=== PATIENT | male | born 2000 | race Caucasian/White ===

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

== ENCOUNTER 2018-11-28 07:49 | Emergency (ER) | payer SELFPAY ==
[2018-11-28 08:01] VITALS: BP 141/89
--- NOTE | 2018-11-28 09:31 | UC ---
Eye Complaint HPI - HPI Summary HPI Summary: PATIENT HERE WITH SEVERAL DAYS OF BILATERAL EYE IRRITATION AND REDNESS. THIS MORNING EYES WERE CRUSTED SHUT WITH SOME GREEN DRAINAGE. DENIES ANY RECENT ILLNESS. NO FEVER. NO VISUAL DISTURBANCES. NO HEADACHE OR NAUSEA. NO PHOTOPHOBIA. NO FOREIGN BODY SENSATION. DOES NOT WEAR CONTACT LENSES. - History of Current Complaint Chief Complaint: UCEye Stated Complaint: EYE REDNESS Time Seen by Provider: 11/28/18 09:12 Hx Obtained From: Patient Onset/Duration: Gradual Onset, Lasting Days, Still Present Timing: Constant Severity Initially: Moderate Severity Currently: Moderate Pain Intensity: 7 Pain Scale Used: 0-10 Numeric Location of Injury: Conjunctiva Aggravating Factor(s): Nothing Alleviating Factor(s): Nothing Associated Signs And Symptoms: Positive: Drainage (Purulent). Negative: Photophobia, Vision Impairment Bilateral - Allergies/Home Medications Allergies/Adverse Reactions: Allergies Allergy/AdvReac Type Severity Reaction Status Date / Time amoxicillin Allergy Rash Verified 11/28/18 07:59 PMH/Surg Hx/FS Hx/Imm Hx Previously Healthy: Yes - Surgical History Surgical History: None Surgery Procedure, Year, and Place: none - Family History Known Family History: Positive: Cardiac Disease, Other - Cancer - Social History Alcohol Use: None Substance Use Type: None Smoking Status (MU): Never Smoked Tobacco - Immunization History Most Recent Influenza Vaccination: 2014 Review of Systems All Other Systems Reviewed And Are Negative: Yes Constitutional: Positive: Negative Skin: Positive: Negative Eyes: Positive: Drainage, Eye Redness Respiratory: Positive: Negative Cardiovascular: Positive: Negative Gastrointestinal: Positive: Negative Physical Exam Triage Information Reviewed: Yes Appearance: Well-Appearing, No Pain Distress, Well-Nourished Vital Signs: Initial Vital Signs Temp 96.6 F 11/28/18 07:55 Pulse 83 11/28/18 07:55 Resp 16 11/28/18 07:55 BP 141/89 11/28/18 07:55 Pulse Ox 100 11/28/18 07:55 Vital Signs Reviewed: Yes Eyes: Positive: Conjunctiva Inflamed, Discharge, Other: - PERRL, EOMI ENT: Positive: Hearing grossly normal Neck: Positive: Supple Respiratory: Positive: No respiratory distress, No accessory muscle use Cardiovascular: Positive: Pulses Normal Abdomen Description: Positive: Soft Musculoskeletal: Positive: No Edema Neurological: Positive: Alert Psychological: Positive: Age Appropriate Behavior Skin: Negative: Rashes Eye Complaint Course/Dx - Course Course Of Treatment: WILL COVER FOR INFECTIOUS CONJUNCTIVITIS WITH ANTIBIOTIC EYEDROPS. ADVISED TO FOLLOW-UP WITH AN EYE DOCTOR IF HIS SYMPTOMS ARE NOT IMPROVING OVER THE NEXT SEVERAL DAYS. - Differential Dx/Diagnosis Provider Diagnosis: Conjunctivitis, acute, bilateral Discharge - Sign-Out/Discharge Documenting (check all that apply): Patient Departure All imaging exams completed and their final reports reviewed: No Studies - Discharge Plan Condition: Stable Disposition: HOME Prescriptions: Ciprofloxacin 0.3% OPTH.SYLVIE* [Cipro 0.3% Opth*] 1 drop BOTH EYES Q4H #1 btl Patient Education Materials: Conjunctivitis (ED) Referrals: mC Jeffries MD [Primary Care Provider] - If Needed Nasir Calhoun MD [Medical Doctor] - If Needed - Billing Disposition and Condition Condition: STABLE Disposition: Home
== END 2018-11-28 09:30 | disposition home or self-care (01) ==
LOC: UCEAST 07:49
DX: H10.33 Unspecified acute conjunctivitis, bilateral (principal)
CPT/HCPCS: 99212; G0463

== ENCOUNTER 2019-04-20 07:43 | Emergency (ER) | payer BC ==
[2019-04-20 08:01] VITALS: BP 142/86
--- NOTE | 2019-04-20 10:47 | UC ---
Throat Pain/Nasal Andrew HPI - HPI Summary HPI Summary: 4 DAYS OF SORE THROAT AND PAIN WITH SWALLOWING. NO FEVER, NAUSEA/VOMITING. NO COUGH OR CONGESTION. - History of Current Complaint Chief Complaint: UCRespiratory Stated Complaint: SORE THROAT Time Seen by Provider: 04/20/19 07:52 Hx Obtained From: Patient Onset/Duration: Gradual Onset, Lasting Days, Still Present Severity: Moderate Pain Intensity: 7 Pain Scale Used: 0-10 Numeric Cough: None Associated Signs & Symptoms: Positive: Negative - Allergies/Home Medications Allergies/Adverse Reactions: Allergies Allergy/AdvReac Type Severity Reaction Status Date / Time amoxicillin Allergy Rash Verified 04/20/19 07:58 Home Medications: Home Medications NK [No Home Medications Reported] 04/20/19 [History Confirmed 04/20/19] PMH/Surg Hx/FS Hx/Imm Hx - Additional Past Medical History Additional PMH: ADD - Surgical History Surgical History: None Surgery Procedure, Year, and Place: none - Family History Known Family History: Positive: Cardiac Disease, Other - Cancer - Social History Alcohol Use: None Substance Use Type: None Smoking Status (MU): Never Smoked Tobacco - Immunization History Most Recent Influenza Vaccination: 2014 Review of Systems All Other Systems Reviewed And Are Negative: Yes Constitutional: Positive: Negative ENT: Positive: Sore Throat Respiratory: Positive: Negative Cardiovascular: Positive: Negative Gastrointestinal: Positive: Negative Physical Exam Triage Information Reviewed: Yes Appearance: Well-Appearing, No Pain Distress, Well-Nourished Vital Signs: Initial Vital Signs Temp 98.7 F 04/20/19 07:55 Pulse 85 04/20/19 07:55 Resp 18 04/20/19 07:55 BP 142/86 04/20/19 07:55 Pulse Ox 98 04/20/19 07:55 Laboratory Tests 04/20/19 08:05 Group A Strep Rapid Negative Eyes: Positive: Conjunctiva Clear ENT: Positive: Hearing grossly normal, Pharynx normal, TMs normal Neck: Positive: Supple, Nontender, No Lymphadenopathy Respiratory Exam: Normal Cardiovascular Exam: Normal Abdomen Description: Positive: Soft Musculoskeletal: Positive: No Edema Neurological: Positive: Alert Psychological: Positive: Age Appropriate Behavior Skin: Negative: Rashes Throat Pain/Nasal Course/Dx - Course Course Of Treatment: STREP NEGATIVE. LIKELY VIRAL ETIOLOGY OF SYMPTOMS. NO INDICATION FOR ANTIBIOTICS TODAY. RECOMMEND CONSERVATIVE MANAGEMENT WITH REST, HYDRATION, OTC MEDS NEEDED. FOLLOW-UP IF NOT IMPROVING EXPECTED. - Differential Dx/Diagnosis Provider Diagnosis: Acute pharyngitis Discharge ED - Sign-Out/Discharge Documenting (check all that apply): Patient Departure All imaging exams completed and their final reports reviewed: No Studies - Discharge Plan Condition: Stable Disposition: HOME Patient Education Materials: Pharyngitis (ED) Forms: *Work Release Referrals: Cm Jeffries MD [Primary Care Provider] - If Needed Additional Instructions: STREP NEGATIVE. YOUR SYMPTOMS ARE LIKELY VIRALLY MEDIATED AND SHOULD RESOLVE ON THEIR OWN WITH TIME. NO INDICATION FOR ANTIBIOTICS AT PRESENT. REST, HYDRATE, OTC MEDS NEEDED. SEEK FOLLOW-UP IF YOU ARE NOT IMPROVING OVER THE NEXT 1-2 WEEKS. - Billing Disposition and Condition Condition: STABLE Disposition: Home
== END 2019-04-20 08:42 | disposition home or self-care (01) ==
LOC: UCEAST 07:43
DX: J02.9 Acute pharyngitis, unspecified (principal); Z88.0 Allergy status to penicillin
CPT/HCPCS: 87651; 99211; G0463

== ENCOUNTER 2019-06-23 14:05 | Emergency (ER) | payer BC ==
[2019-06-23 14:18] VITALS: BP 141/88
[2019-06-23] MEDS ORDERED: Ibuprofen TAB* 400 MG PO ONE (14:32)
--- NOTE | 2019-06-23 14:34 | UC ---
UC General HPI - HPI Summary HPI Summary: patient awoke with R sided lower jaw pain, denies teeth pain, did try ambesol today w/o relief, also took Tylenol and that helped reduce pain no fever, no cough, no recent URI, no neck pain, pain worse if moves jaw L and R - describe "tension" in lower R jaw - History of Current Complaint Chief Complaint: UCGeneralIllness Stated Complaint: JAW PAIN Time Seen by Provider: 06/23/19 14:16 Hx Obtained From: Patient Onset/Duration: Sudden Onset Timing: Constant Onset Severity: Severe Current Severity: Moderate Pain Intensity: 8 - Allergy/Home Medications Allergies/Adverse Reactions: Allergies Allergy/AdvReac Type Severity Reaction Status Date / Time amoxicillin Allergy Rash Verified 06/23/19 14:18 Home Medications: Home Medications Acetaminophen TAB* [Tylenol TAB*] 325 mg PO Q6H PRN 05/25/19 [History Confirmed 06/23/19] Cetirizine* [ZyrTEC 10 MG TAB*] 10 mg PO DAILY 05/25/19 [History Confirmed ] clindamycin HCL [Clindamycin HCl] 150 mg PO TID #30 capsule 06/23/19 [Rx] PMH/Surg Hx/FS Hx/Imm Hx Previously Healthy: Yes - Surgical History Surgical History: None Surgery Procedure, Year, and Place: none - Family History Known Family History: Positive: Cardiac Disease, Other - Cancer - Social History Occupation: Employed Full-time Lives: With Family Alcohol Use: None Substance Use Type: None Smoking Status (MU): Never Smoked Tobacco - Immunization History Most Recent Influenza Vaccination: 2014 Review of Systems All Other Systems Reviewed And Are Negative: Yes Constitutional: Positive: Negative Skin: Positive: Negative Eyes: Positive: Negative ENT: Negative: Dental Pain, Sore Throat, Ear Ache, Sinus Congestion Respiratory: Positive: Negative, Cough Cardiovascular: Positive: Negative Gastrointestinal: Positive: Negative Musculoskeletal: Positive: Negative Neurological/Mental Status: Positive: Negative. Negative: Headache Psychological: Positive: Negative Is Patient Immunocompromised?: No Physical Exam Triage Information Reviewed: Yes Appearance: Well-Appearing, No Pain Distress, Well-Nourished Vital Signs: Initial Vital Signs Temp 98.5 F 06/23/19 14:14 Pulse 90 06/23/19 14:14 Resp 18 06/23/19 14:14 BP 141/88 06/23/19 14:14 Pulse Ox 97 06/23/19 14:14 Vital Signs Reviewed: Yes Eye Exam: Normal Eyes: Positive: Conjunctiva Clear ENT: Positive: Pharynx normal, TMs normal, Other - slight R TMJ tenderness with palpation - no swelling. Negative: Nasal congestion, Nasal drainage, Dental tenderness, Sinus tenderness Dental: Positive: Other: - fractured R lower 3rd molar. Negative: Gross Decay/ Caries @, Abscess @, Cervical Lymphadenopathy Neck exam: Normal Neck: Positive: Supple, Nontender Respiratory Exam: Normal Respiratory: Positive: Lungs clear Cardiovascular Exam: Normal Cardiovascular: Positive: RRR Musculoskeletal Exam: Normal Neurological Exam: Normal Psychological Exam: Normal Skin Exam: Normal Re-Evaluation - Re-Evaluation First Eval Re-Evaluation Time: 15:30 Change: Improved - slightly less painful but still "tight feeling" Course/Dx - Differential Dx - Multi-Symptom Differential Diagnoses: Other - dental abscess, TMJ, viral illness, OM - Diagnoses Provider Diagnosis: Pain, dental Discharge ED - Sign-Out/Discharge Documenting (check all that apply): Patient Departure All imaging exams completed and their final reports reviewed: No Studies - Discharge Plan Condition: Good Disposition: HOME Prescriptions: clindamycin HCL [Clindamycin HCl] 150 mg PO TID #30 capsule Patient Education Materials: Toothache (ED) Forms: *Work Release Referrals: Cm Jeffries MD [Primary Care Provider] - Additional Instructions: Use ibuprofen 600-800mg every 6 hours as needed for pain - take with food make sure to see you dentist as soon as possible take antibiotic as directed - Billing Disposition and Condition Condition: GOOD Disposition: Home
== END 2019-06-23 15:40 | disposition home or self-care (01) ==
LOC: UCEAST 14:05
DX: K08.89 Other specified disorders of teeth and supporting structures (principal); R68.84 Jaw pain; Z88.0 Allergy status to penicillin
CPT/HCPCS: 99212; A9270-GY; G0463